=== PATIENT | female | born 1940 | race Caucasian/White ===

== ENCOUNTER 2021-10-04 13:14 | Inpatient (IN) ==
[2021-10-04] MEDS ORDERED: SODIUM CHLORIDE 0.9% 500 ML IV STA (14:16)
[2021-10-04] MEDS ORDERED: KETOROLAC 30 MG/1 ML VIAL IV STA (14:16)
[2021-10-04] MEDS ORDERED: ONDANSETRON 4 MG/2 ML VIAL IV STA (14:16)
[2021-10-04 14:22] LABS: Basophils % 0.3 % (0.0-0.8); Eosinophils # 0.1 10*3/uL (0.0-0.87); Eosinophils % 0.6 % (0.00-10.9); Hematocrit 32.7 VOL% (35.7-47.0); Hemoglobin 10.8 GM/DL (12.0-16.0); Immature Granulocytes % 0.7 %; Immature Granulocytes Absolute 0.07 #; Lymphocytes # 0.7 10*3/uL (1.4-4.0); Lymphocytes % 7.2 % (21.3-54.2); Mean Corpuscular Volume 102.5 FL (87-102); Mean Platelet Volume 10.9 FL (9.6-12.0); Monocytes # 0.7 10*3/uL (0.11-0.8); Neutrophils % 84.2 % (38.7-73.9); Platelet Count 149 T/CUMM (130-400); Red Blood Count 3.19 MC/CUMM (3.8-5.5); Red Cell Distribution Width 12.6 % (9.3-17.3); White Blood Count 10.1 T/CUMM (4-12)
[2021-10-04 14:29] LABS: INR 0.9; PT Patient Result 10.3 SECS (10.1-12.1)
[2021-10-04 14:33] LABS: Osmolality,Calculated 289.7 MOS/KG (273-304); Potassium 4.3 MMOL/L (3.5-5.1)
[2021-10-04] MEDS ORDERED: DEXTROSE 50% 25 GM/50 ML VIAL IV PRN (15:18)
[2021-10-04] MEDS ORDERED: ONDANSETRON 4 MG/2 ML VIAL IV PRN (15:18)
[2021-10-04] MEDS ORDERED: GLUCAGON 1 MG VIAL IM PRN ×2 (15:18)
[2021-10-04] MEDS ORDERED: MORPHINE 2 MG/1 ML SYRINGE IV PRN (15:18)
[2021-10-04] MEDS ORDERED: DEXTROSE 10% 250 ML BAG IV PRN (15:30)
[2021-10-04 17:48] LABS: Urine Color Yellow (Yellow)
[2021-10-04 17:49] LABS: Bilirubin,Urine Negative (Negative); Blood, Urine Negative (Negative); Glucose,Urine (UA) Negative (Negative); Ketones,Urine Negative (Negative); Nitrite,Urine Negative (Negative); Protein,Urine Negative (Negative); Urine Appearance Clear (Clear); Urine Urobilinogen 0.2 eU/dL (<2.0)
[2021-10-04 17:52] LABS: Bacteria,Urine Occasional /HPF (Few); Mucus,Urine Occasional /LPF (Occasional); RBC,Urine 2 /HPF (0-4); Squamous Epithelial Cell,Urine Occasional /HPF (0-10)
[2021-10-04] MEDS: LACTATED RINGERS 1,000 ML IV SCH (18:06)
[2021-10-04] MEDS: INSULIN LISPRO 100 UNIT/ML SUBCUT SCH ×2 (18:14→22:08)
[2021-10-05 05:13] LABS: Basophils # 0.1 10*3/uL (0.0-0.2); Basophils % 0.6 % (0.0-0.8); Eosinophils # 0.4 10*3/uL (0.0-0.87); Eosinophils % 5.6 % (0.00-10.9); Hematocrit 27.9 VOL% (35.7-47.0); Hemoglobin 9.1 GM/DL (12.0-16.0); Immature Granulocytes % 0.4 %; Immature Granulocytes Absolute 0.03 #; Lymphocytes # 1.5 10*3/uL (1.4-4.0); Mean Corpuscular HGB Conc 32.6 GM/DL (32-36); Mean Corpuscular Volume 103.7 FL (87-102); Mean Platelet Volume 10.8 FL (9.6-12.0); Monocytes # 0.8 10*3/uL (0.11-0.8); Monocytes % 10.4 % (1.7-12.7); Platelet Count 115 T/CUMM (130-400); Red Blood Count 2.69 MC/CUMM (3.8-5.5); Red Cell Distribution Width 12.5 % (9.3-17.3); White Blood Count 7.8 T/CUMM (4-12)
[2021-10-05 05:26] LABS: Calcium 8.7 MG/DL (8.5-10.1); Osmolality,Calculated 285.1 MOS/KG (273-304); Potassium 4.3 MMOL/L (3.5-5.1)
[2021-10-05] MEDS: LACTATED RINGERS 1,000 ML IV SCH ×3 (05:26→21:59)
[2021-10-05] MEDS ORDERED: VANCOMYCIN INJ 750 MG in SODIUM CHLORIDE 0.9% 250 ML IV ONE (06:36)
[2021-10-05] MEDS: INSULIN LISPRO 100 UNIT/ML SUBCUT SCH ×4 (08:02→20:26)
[2021-10-05] MEDS ORDERED: LACTATED RINGERS 1,000 ML IV SCH (10:30)
[2021-10-05] MEDS ORDERED: MORPHINE 2 MG/1 ML SYRINGE IV PRN ×2 (11:21)
[2021-10-05] MEDS ORDERED: oxyCODONE/ACETAMINOPHEN 5-325 MG TABLET PO PRN (11:21)
[2021-10-05] MEDS ORDERED: MAGNESIUM HYDROXIDE SUSP 30 ML UDCUP PO PRN (11:21)
[2021-10-05] MEDS ORDERED: ONDANSETRON 4 MG/2 ML VIAL ONE (12:13)
[2021-10-05] MEDS ORDERED: DEXAMETHASONE 4 MG/1 ML VIAL ONE (12:13)
[2021-10-05] MEDS ORDERED: PHENYLEPHRINE 1 MG/10 ML SYRINGE IV ONE (13:17)
[2021-10-05] MEDS: PANTOPRAZOLE 40 MG TABLET PO SCH (13:53)
[2021-10-05] MEDS: carvediloL 3.125 MG TABLET PO SCH ×2 (14:56→17:17)
[2021-10-05] MEDS: levETIRAcetam 500 MG TABLET PO SCH ×2 (14:56→17:16)
[2021-10-05] MEDS: busPIRone 5 MG TABLET PO SCH (17:17)
[2021-10-05] MEDS: ATORVASTATIN 40 MG TABLET PO SCH (17:17)
[2021-10-05] MEDS: oxyCODONE/ACETAMINOPHEN 5-325 MG TABLET PO PRN (21:09)
[2021-10-05] MEDS: DOCUSATE SODIUM 100 MG CAPSULE PO SCH (21:09)
[2021-10-06 05:10] LABS: Basophils % 0.1 % (0.0-0.8); Hematocrit 27.2 VOL% (35.7-47.0); Hemoglobin 8.7 GM/DL (12.0-16.0); Immature Granulocytes % 0.7 %; Immature Granulocytes Absolute 0.06 #; Lymphocytes # 0.5 10*3/uL (1.4-4.0); Lymphocytes % 6.4 % (21.3-54.2); Mean Corpuscular Volume 105.8 FL (87-102); Mean Platelet Volume 11.8 FL (9.6-12.0); Monocytes # 0.8 10*3/uL (0.11-0.8); Monocytes % 9.2 % (1.7-12.7); Neutrophils % 83.6 % (38.7-73.9); Platelet Count 124 T/CUMM (130-400); Red Blood Count 2.57 MC/CUMM (3.8-5.5); Red Cell Distribution Width 12.3 % (9.3-17.3); White Blood Count 8.5 T/CUMM (4-12)
[2021-10-06] MEDS: FONDAPARINUX 2.5 MG/0.5 ML SYRINGE SUBCUT SCH (05:17)
[2021-10-06] MEDS: LACTATED RINGERS 1,000 ML IV SCH (05:23)
[2021-10-06 05:29] LABS: Calcium 8.6 MG/DL (8.5-10.1); Osmolality,Calculated 285.3 MOS/KG (273-304); Potassium 4.5 MMOL/L (3.5-5.1)
[2021-10-06] MEDS: INSULIN LISPRO 100 UNIT/ML SUBCUT SCH ×4 (07:46→20:27)
[2021-10-06] MEDS: PANTOPRAZOLE 40 MG TABLET PO SCH (09:42)
[2021-10-06] MEDS: CITALOPRAM 20 MG TABLET PO SCH (09:42)
[2021-10-06] MEDS: OXYBUTYNIN XL 10 MG TABLET PO SCH (09:42)
[2021-10-06] MEDS: oxyCODONE/ACETAMINOPHEN 5-325 MG TABLET PO PRN ×2 (09:42→14:44)
[2021-10-06] MEDS: CHOLECALCIFEROL 5,000 UNIT TABLET PO SCH (09:42)
[2021-10-06] MEDS: ASPIRIN EC 81 MG TABLET PO SCH (09:42)
[2021-10-06] MEDS: MULTIVITAMIN (CENTRUM) TABLET PO SCH (09:42)
[2021-10-06] MEDS: CALCIUM (CARBONATE)/VITAMIN D 600 MG-400 UNIT TABLET PO SCH (09:42)
[2021-10-06] MEDS: OLMESARTAN 5 MG TABLET PO SCH (09:42)
[2021-10-06] MEDS: carvediloL 3.125 MG TABLET PO SCH ×2 (09:43→16:51)
[2021-10-06] MEDS: DOCUSATE SODIUM 100 MG CAPSULE PO SCH ×2 (09:43→20:27)
[2021-10-06] MEDS: GLIMEPIRIDE 2 MG TABLET PO SCH (09:43)
[2021-10-06] MEDS: busPIRone 5 MG TABLET PO SCH ×2 (09:43→16:49)
[2021-10-06] MEDS: levETIRAcetam 500 MG TABLET PO SCH ×2 (09:43→16:49)
[2021-10-06] MEDS: NON-FORMULARY MEDICATION (Olopatadine [Pataday Once Daily Relief] 0.2 % Drops) BOTH EYES SCH (09:46)
[2021-10-06] MEDS: ATORVASTATIN 40 MG TABLET PO SCH (17:16)
[2021-10-07] MEDS: FONDAPARINUX 2.5 MG/0.5 ML SYRINGE SUBCUT SCH (05:47)
[2021-10-07 05:56] LABS: Basophils % 0.4 % (0.0-0.8); Eosinophils # 0.1 10*3/uL (0.0-0.87); Eosinophils % 1.8 % (0.00-10.9); Hematocrit 23.9 VOL% (35.7-47.0); Hemoglobin 7.8 GM/DL (12.0-16.0); Immature Granulocytes % 0.8 %; Immature Granulocytes Absolute 0.06 #; Lymphocytes # 1.2 10*3/uL (1.4-4.0); Lymphocytes % 16.5 % (21.3-54.2); Mean Corpuscular HGB Conc 32.6 GM/DL (32-36); Mean Corpuscular Volume 103.5 FL (87-102); Mean Platelet Volume 11.6 FL (9.6-12.0); Monocytes # 0.8 10*3/uL (0.11-0.8); Monocytes % 11.6 % (1.7-12.7); Neutrophils % 68.9 % (38.7-73.9); Platelet Count 128 T/CUMM (130-400); Red Blood Count 2.31 MC/CUMM (3.8-5.5); Red Cell Distribution Width 12.4 % (9.3-17.3); White Blood Count 7.1 T/CUMM (4-12)
[2021-10-07 06:19] LABS: Calcium 8.6 MG/DL (8.5-10.1); Osmolality,Calculated 278.5 MOS/KG (273-304); Potassium 4.5 MMOL/L (3.5-5.1)
[2021-10-07] MEDS: oxyCODONE/ACETAMINOPHEN 5-325 MG TABLET PO PRN ×2 (06:49→17:47)
[2021-10-07] MEDS ORDERED: SODIUM CHLORIDE 0.9% 1,000 ML IV PRN (07:43)
[2021-10-07] MEDS: INSULIN LISPRO 100 UNIT/ML SUBCUT SCH ×4 (08:50→21:00)
[2021-10-07] MEDS: CITALOPRAM 20 MG TABLET PO SCH (09:07)
[2021-10-07] MEDS: OLMESARTAN 5 MG TABLET PO SCH (09:07)
[2021-10-07] MEDS: CALCIUM (CARBONATE)/VITAMIN D 600 MG-400 UNIT TABLET PO SCH (09:07)
[2021-10-07] MEDS: GLIMEPIRIDE 2 MG TABLET PO SCH (09:07)
[2021-10-07] MEDS: busPIRone 5 MG TABLET PO SCH ×2 (09:07→16:23)
[2021-10-07] MEDS: ASPIRIN EC 81 MG TABLET PO SCH (09:07)
[2021-10-07] MEDS: MULTIVITAMIN (CENTRUM) TABLET PO SCH (09:08)
[2021-10-07] MEDS: carvediloL 3.125 MG TABLET PO SCH ×2 (09:08→16:23)
[2021-10-07] MEDS: CHOLECALCIFEROL 5,000 UNIT TABLET PO SCH (09:08)
[2021-10-07] MEDS: PANTOPRAZOLE 40 MG TABLET PO SCH (09:08)
[2021-10-07] MEDS: NON-FORMULARY MEDICATION (Olopatadine [Pataday Once Daily Relief] 0.2 % Drops) BOTH EYES SCH (09:08)
[2021-10-07] MEDS: DOCUSATE SODIUM 100 MG CAPSULE PO SCH ×2 (09:08→20:12)
[2021-10-07] MEDS: OXYBUTYNIN XL 10 MG TABLET PO SCH (09:08)
[2021-10-07] MEDS: levETIRAcetam 500 MG TABLET PO SCH ×2 (09:08→16:23)
[2021-10-07] MEDS ORDERED: POLYETHYLENE GLYCOL POWDER 17 GM PACK PO PRN (13:08)
[2021-10-07 14:58] LABS: Hematocrit 28.5 VOL% (35.7-47.0); Hemoglobin 9.4 GM/DL (12.0-16.0)
[2021-10-07] MEDS: ATORVASTATIN 40 MG TABLET PO SCH (17:46)
[2021-10-08] MEDS: oxyCODONE/ACETAMINOPHEN 5-325 MG TABLET PO PRN (01:12)
[2021-10-08 04:46] LABS: Basophils % 0.5 % (0.0-0.8); Eosinophils # 0.3 10*3/uL (0.0-0.87); Eosinophils % 3.3 % (0.00-10.9); Hematocrit 28.7 VOL% (35.7-47.0); Hemoglobin 9.3 GM/DL (12.0-16.0); Immature Granulocytes % 0.5 %; Immature Granulocytes Absolute 0.04 #; Lymphocytes # 1.1 10*3/uL (1.4-4.0); Lymphocytes % 14.6 % (21.3-54.2); Mean Corpuscular HGB Conc 32.4 GM/DL (32-36); Mean Corpuscular Volume 98.6 FL (87-102); Monocytes # 0.8 10*3/uL (0.11-0.8); Monocytes % 10.8 % (1.7-12.7); Neutrophils % 70.3 % (38.7-73.9); Platelet Count 149 T/CUMM (130-400); Red Blood Count 2.91 MC/CUMM (3.8-5.5); Red Cell Distribution Width 15.9 % (9.3-17.3); White Blood Count 7.5 T/CUMM (4-12)
[2021-10-08 05:05] LABS: Calcium 8.5 MG/DL (8.5-10.1); Osmolality,Calculated 281.4 MOS/KG (273-304); Potassium 4.5 MMOL/L (3.5-5.1)
[2021-10-08] MEDS: FONDAPARINUX 2.5 MG/0.5 ML SYRINGE SUBCUT SCH (06:43)
[2021-10-08 07:47] VITALS: BP 115/51
[2021-10-08] MEDS: INSULIN LISPRO 100 UNIT/ML SUBCUT SCH (08:32)
[2021-10-08] MEDS: GLIMEPIRIDE 2 MG TABLET PO SCH (09:19)
[2021-10-08] MEDS: MULTIVITAMIN (CENTRUM) TABLET PO SCH (09:20)
[2021-10-08] MEDS: ASPIRIN EC 81 MG TABLET PO SCH (09:20)
[2021-10-08] MEDS: carvediloL 3.125 MG TABLET PO SCH (09:20)
[2021-10-08] MEDS: CALCIUM (CARBONATE)/VITAMIN D 600 MG-400 UNIT TABLET PO SCH (09:20)
[2021-10-08] MEDS: busPIRone 5 MG TABLET PO SCH (09:20)
[2021-10-08] MEDS: OLMESARTAN 5 MG TABLET PO SCH (09:20)
[2021-10-08] MEDS: OXYBUTYNIN XL 10 MG TABLET PO SCH (09:20)
[2021-10-08] MEDS: CITALOPRAM 20 MG TABLET PO SCH (09:20)
[2021-10-08] MEDS: NON-FORMULARY MEDICATION (Olopatadine [Pataday Once Daily Relief] 0.2 % Drops) BOTH EYES SCH (09:21)
[2021-10-08] MEDS: levETIRAcetam 500 MG TABLET PO SCH (09:21)
[2021-10-08] MEDS: CHOLECALCIFEROL 5,000 UNIT TABLET PO SCH (09:21)
[2021-10-08] MEDS: PANTOPRAZOLE 40 MG TABLET PO SCH (09:21)
[2021-10-08] MEDS: DOCUSATE SODIUM 100 MG CAPSULE PO SCH (09:21)
[2021-10-08] MEDS ORDERED: ACETAMINOPHEN 325 MG TABLET PO PRN (09:45)
[2021-10-08] MEDS ORDERED: FUROSEMIDE 40 MG/4 ML VIAL IV ONE (10:58)
== END 2021-10-08 12:12 | disposition home health service (06) | DRG 522 ==
LOC: EDBD → EDUNIT# → N.ED 13:14 → N.EDINP 15:18 → SUATTDRO 15:18 → N.3E 16:30
PROVIDERS: ADMIT Phlebology; ATTEND Internal Medicine